=== PATIENT | female | born 1975 ===

== ENCOUNTER 2022-06-27 14:44 | Emergency (ER) | payer BC | END 2022-06-27 22:15 | disposition home or self-care (01) | LOC: MW.ED 14:44 | DX: S62.111A Displaced fracture of triquetrum [cuneiform] bone, right wrist, initial encounter for closed fracture (principal); W00.0XXA Fall on same level due to ice and snow, initial encounter | CPT/HCPCS: 29125; 73100-26-RT; 73100-RT; 99283-25 ==